=== PATIENT | female | born 1950 | race Caucasian/White ===

== ENCOUNTER 2017-09-29 15:25 | Outpatient (CLI) | payer BC | END 2017-09-29 15:26 | disposition home or self-care (01) | LOC: BICRAD 15:25 | PROVIDERS: ATTEND Internal Medicine | DX: R05 Cough (principal) | CPT/HCPCS: 71046 ==

== ENCOUNTER 2018-12-01 17:28 | Emergency (ER) | payer BC ==
[~2018-12-01 17:28] MED LIST: ISOVUE-370 76%-LOCM 1 ML ONE
--- NOTE | 2018-12-01 18:01 | RAD ---
RADIOGRAPH CHEST 1 VIEW: DATE: 12/01/2018 HISTORY: 60-year-old female with chest pain FINDINGS: There are no airspace densities, pulmonary edema, pneumothorax, or cardiomegaly. There is mild blunti ng of the left lateral costophrenic angle, new since prior study of 09/29/2017. The right lateral costophrenic angles is sharp. IMPRESSION: 1. No acute cardiopulmonary findings. 2. Possible small left pleural effusion
[2018-12-01 18:02] LABS: #Eosinphils 0.1 thou/uL (0.0-0.7); #Lymphocytes 1.7 thou/uL (1.20-3.40); #Monocytes 0.4 thou/uL (0.11-0.59); #Neutrophils 4.3 thou/uL (1.40-6.50); %Basophils 0.7 % (0.0-1.0); %Eosinophils 1.4 % (0.0-10.0); %Lymphocytes 25.9 % (21.0-51.0); %Monocytes 6.7 % (0.0-10.0); %Neutrophils 65.3 % (42.0-75.0); Hemoglobin 13.5 g/dL (12.0-16.0); Mean Corpuscular HGB CONC 32.9 g/dL (32.0-36.0); Mean Corpuscular Hemoglobin 30.7 pg (27.0-31.0); Mean Corpuscular Volume 93.5 fL (78.0-98.0); Mean Platelet Volume 6.6 fL (7.4-10.4); Platelet Count 244 thou/uL (130-400); RBC Distribution Width 12.1 % (11.5-14.5); Red Blood Cell (RBC) Count 4.41 mill/uL (4.20-5.40); White Blood Cell (WBC) Count 6.6 thou/uL (4.8-10.8)
[2018-12-01 18:27] LABS: ALT (SGPT) 15 U/L (8-55); AST (SGOT) 16 U/L (5-34); Albumin 4.5 g/dL (3.4-4.8); Alkaline Phosphatase 89 U/L (40-150); Anion Gap 10 mmol/L (10-20); BUN (Urea Nitrogen) 21 mg/dL (9.8-20.1); Bilirubin, Total 0.2 mg/dL (0.2-1.2); Calc. Creatinine Clearance 0 mL/min (70-130); Calcium 10.1 mg/dL (7.8-10.44); Carbon Dioxide 33 mmol/L (23-31); Chloride 101 mmol/L (98-107); Estimated GFR-MDRD 53; Globulin 2.1 g/dL (2.4-3.5); Glucose 107 mg/dL (80-115); Protein, Total 6.6 g/dL (6.0-8.3); Sodium 140 mmol/L (136-145)
--- NOTE | 2018-12-01 19:55 | CT ---
CT ANGIOGRAM THORAX WITH CONTRAST: (CTA pulmonary angiogram) DATE: 12/01/2018 at 7:33 PM HISTORY: 68-year-old female with right-sided chest pain TECHNIQUE: IV injection of iodinated contrast. Scan acquisition timing attempted to coincide with iodinated contrast bolus reaching maximal density in pulmonary arteries. 3-D MIP reconstructions. FINDINGS: Pulmonary thromboembolism: None. Lungs: No consolidation or edema. Pneumothorax: None. Pleural effusion: None. Thoracic aorta: Ectasia, especially ascending aorta. No dissection or aneurysm. Incidental finding of 3 cm cyst in the left lobe of liver. Dilated left-sided extrarenal pelvis, incompletely imaged. IMPRESSION: No pulmonary thromboembolism.
--- NOTE | 2018-12-05 10:32 | EKG ---
Test Reason : Blood Pressure : / mmHG Vent. Rate : 071 BPM Atrial Rate : 071 BPM P-R Int : 142 ms QRS Dur : 088 ms QT Int : 398 ms P-R-T Axes : 015 -15 040 degrees QTc Int : 432 ms Normal sinus rhythm Normal ECG Confirmed by FRANCISCA ROOT ([id number]), newspaper editor managing STEWART AVERY ([id number]) on 12/05/2018 10:32:15 AM Referred By: Confirmed By:FRANCISCA ROOT
== END 2018-12-01 20:29 | disposition home or self-care (01) ==
LOC: ERS 17:28
DX: R07.9 Chest pain, unspecified (principal)
CPT/HCPCS: 36415; 71045; 71275; 80053; 84484; 85025; 85379; 93005; Q9966

== ENCOUNTER 2019-04-14 08:46 | Outpatient (CLI) | payer BC ==
--- NOTE | 2019-04-14 10:12 | RAD ---
LUMBAR SPINE 2 VIEWS: Date: 04/14/19 HISTORY: Osteoporosis and polyarthritis. Back pain. COMPARISON: None. FINDINGS: Mild levoscoliosis thoracolumbar junction. Moderate facet arthropathy L5-S1. Mild degenerative disc s pace height loss L5-S1. Mild degenerative changes of both SI joints. No dilated loops of bowel. No acute fracture. No listhes is. IMPRESSION: Mild scoliotic change and degenerative spondylosis. No acute osseous abnormality. POS: [facility]
--- NOTE | 2019-04-14 10:13 | RAD ---
THORACIC SPINE 2 VIEWS: Date: 04/14/19 HISTORY: Osteoporosis. COMPARISON: None. FINDINGS: No acute fracture of the thoracic spine. No listhesis. Paraspinal soft tissues appear unremarkable. Cardiac silhouette and mediastinal contours are normal. IMPRESSION: No acute osseous abnormality of thoracic spine. POS: [facility]
--- NOTE | 2019-04-14 10:16 | RAD ---
HIPS BILATERAL 5 VIEWS: Date: 04/14/19 HISTORY: Osteoporosis. Polyarthritis. COMPARISON: None. FINDINGS: There is mild narrowing of both hip joints. There are synovial herniation pits of both femoral head/n mackenzie junctions. Mild narrowing of the pubic symphysis. Mild degenerative disease both SI joints. No lumbosacral trans itional vertebra. Small phleboliths in the pelvis. No dilated loops of large or small bowel. IMPRESSION: 1. Mild degenerative narrowing both hip joints. 2. 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 3. No acute osseous abnormality. POS: [facility]
== END 2019-04-14 08:47 | disposition home or self-care (01) ==
LOC: BICRAD 08:46
PROVIDERS: ATTEND Internal Medicine Rheumatology
DX: M81.0 Age-related osteoporosis without current pathological fracture (principal); M13.0 Polyarthritis, unspecified; M16.0 Bilateral primary osteoarthritis of hip
CPT/HCPCS: 72070; 72100; 73523

== ENCOUNTER 2019-04-19 10:06 | Outpatient (CLI) | payer BC ==
--- NOTE | 2019-04-19 12:28 | BD ---
DEXA BONE DENSITY STUDY: Date: 04/19/19 HISTORY: Osteoporosis screening. COMPARISON: None. FINDINGS: Lumbar Spine: BMD (g/cm2) L1 0.767 T-Score: -2.0 Z-Score: -0.2 L2 0.821 T-Score: -1.9 Z-Score: 0.2 L3 0.865 T-Score: -2.0 Z-Score: 0.2 L4 0.867 T-Score: -1.8 Z-Score: 0.5 L1-L4 0.830 T-Score: -2.0 Z-Score: 0.1 Left Femoral Neck: 0.623 T-Score: -2.0 Z-Score: -0.2 Total Left Hip: 0.870 T-Score: -0.6 Z-Score: 0.9 Right Femoral Neck: 0.687 T-Score: -1.5 Z-Score: 0.3 Total Right Hip: 0.911 T-Score: -0.3 Z-Score: 1.2 WHO Classification: Osteopenia. IMPRESSION: Osteopenia. POS: [facility]
== END 2019-04-19 10:07 | disposition home or self-care (01) ==
LOC: BICMAMMO 10:06
PROVIDERS: ATTEND Internal Medicine Rheumatology
DX: M81.0 Age-related osteoporosis without current pathological fracture (principal); M85.80 Other specified disorders of bone density and structure, unspecified site
CPT/HCPCS: 77080

== ENCOUNTER 2021-04-17 09:06 | Outpatient (CLI) | payer BC | END 2021-04-17 09:07 | disposition home or self-care (01) | LOC: BICMAMMO 09:06 | PROVIDERS: ATTEND Internal Medicine Rheumatology | DX: M81.0 Age-related osteoporosis without current pathological fracture (principal); M85.89 Other specified disorders of bone density and structure, multiple sites | CPT/HCPCS: 77080 ==

== ENCOUNTER 2023-04-10 14:25 | Outpatient (CLI) | payer MEDICARE, BC | END 2023-04-10 14:26 | disposition home or self-care (01) | LOC: BICMAMMO 14:25 | PROVIDERS: ATTEND Internal Medicine Rheumatology | DX: M81.0 Age-related osteoporosis without current pathological fracture (principal); M85.89 Other specified disorders of bone density and structure, multiple sites | CPT/HCPCS: 77080 ==